=== PATIENT | female | born 1975 | race Caucasian/White ===

== ENCOUNTER 2016-04-15 12:46 | Day surgery (SDC) | payer BC ==
[2016-04-15 13:36] LABS: MCHC 30.8 g/dl (32.0-36.0); MEAN CELL VOLUME 64.6 fl (80-96); MEAN PLT VOLUME 8.8 fl (7.5-11.1); RDW 18.2 % (11.6-15.6); WHITE BLOOD COUNT 10.3 K/mm3 (4.0-10.0)
[2016-04-15 13:38] LABS: MCH 19.9 pg (25.7-33.7)
[2016-04-15] MEDS ORDERED: REFRIGERATED ANITBIOTICS ONE (13:44)
[2016-04-15] MEDS ORDERED: IRON SUCROSE INJECTION 200 MG in SODIUM CHLORIDE 100 ML IVPB ONE (14:00)
[2016-04-15 14:01] VITALS: TEMP 98; BMI 31.8
[2016-04-15 14:20] LABS: PLATELET COUNT 248 K/MM3 (134-434)
[2016-04-15 14:21] LABS: ANISOCYTOSIS 1+; HYPOCHROMIA 2+; MICROCYTOSIS 1+; PLATELET COMMENT2 NO CLOTTING DETECTED; PLATELET ESTIMATE ADEQUATE (NORMAL); POLYCHROMASIA OCC
[2016-04-15 14:22] LABS: BURR CELLS 1+; OVALOCYTES 1+; TARGET CELLS 1+
[2016-04-15 15:13] VITALS: BP 126/80; PULSE 69
== END 2016-04-15 15:23 | disposition home or self-care (01) ==
LOC: FINFUSION 12:46 → FLAB 12:46 → FM/S 12:52 → FLAB 15:23 → FM/S 15:23
PROVIDERS: ATTEND Internal Medicine Hematology & Oncology
PROC: 3E033GC Introduction of Other Therapeutic Substance into Peripheral Vein, Percutaneous Approach (ICD-10-PCS; principal; 2016-04-15)
DX: D64.9 Anemia, unspecified (principal)
CPT/HCPCS: 36415; 84591; 85025; 96365; J1756

== ENCOUNTER 2016-04-22 12:35 | Day surgery (SDC) | payer BC ==
[~2016-04-22 12:35] MED LIST: IRON SUCROSE INJECTION 200 MG in SODIUM CHLORIDE 100 ML IVPB ONE
[2016-04-22 13:51] VITALS: BP 124/72; PULSE 68
== END 2016-04-22 13:52 | disposition home or self-care (01) ==
LOC: FINFUSION 12:35 → FM/S 12:37 → FINFUSION 13:52
PROVIDERS: ATTEND Internal Medicine Hematology & Oncology
PROC: 3E033GC Introduction of Other Therapeutic Substance into Peripheral Vein, Percutaneous Approach (ICD-10-PCS; principal; 2016-04-22)
DX: D50.9 Iron deficiency anemia, unspecified (principal)
CPT/HCPCS: 96365

== ENCOUNTER 2016-04-29 13:33 | Day surgery (SDC) | payer BC ==
[2016-04-29] MEDS ORDERED: REFRIGERATED ANITBIOTICS ONE (14:01)
[2016-04-29] MEDS ORDERED: IRON SUCROSE INJECTION 200 MG in SODIUM CHLORIDE 100 ML IVPB ONE (14:15)
[2016-04-29 17:45] VITALS: TEMP 98.4; BMI 30.4
[2016-04-29 17:48] VITALS: BP 110/72; PULSE 76
== END 2016-04-29 15:00 | disposition home or self-care (01) ==
LOC: FINFUSION 13:33 → FM/S 13:36 → FINFUSION 15:00
PROVIDERS: ATTEND Internal Medicine Hematology & Oncology
PROC: 3E033GC Introduction of Other Therapeutic Substance into Peripheral Vein, Percutaneous Approach (ICD-10-PCS; principal; 2016-04-29)
DX: D50.9 Iron deficiency anemia, unspecified (principal)
CPT/HCPCS: 96365; 96366; J1756

== ENCOUNTER 2016-05-06 10:49 | Day surgery (SDC) | payer BC ==
[2016-05-06] MEDS ORDERED: REFRIGERATED ANITBIOTICS ONE (11:25)
[2016-05-06] MEDS ORDERED: IRON SUCROSE INJECTION 200 MG in SODIUM CHLORIDE 100 ML IVPB ONE (12:45)
[2016-05-06 12:53] VITALS: BP 114/68; PULSE 90; TEMP 98
== END 2016-05-06 12:54 | disposition home or self-care (01) ==
LOC: FINFUSION 10:49 → FM/S 10:50 → FINFUSION 12:54
PROVIDERS: ATTEND Internal Medicine Hematology & Oncology
PROC: 3E033GC Introduction of Other Therapeutic Substance into Peripheral Vein, Percutaneous Approach (ICD-10-PCS; principal; 2016-05-06)
DX: D50.9 Iron deficiency anemia, unspecified (principal)
CPT/HCPCS: 96365; J1756

== ENCOUNTER 2016-05-13 13:14 | Day surgery (SDC) | payer BC ==
[2016-05-13 13:49] VITALS: BP 110/65; PULSE 62; TEMP 97.6; BMI 30.4
[2016-05-13] MEDS ORDERED: IRON SUCROSE COMPLEX 100 MG/5 ML VIAL IVPB ONE (14:00)
[2016-05-13] MEDS ORDERED: REFRIGERATED ANITBIOTICS ONE (14:20)
== END 2016-05-13 15:45 | disposition home or self-care (01) ==
LOC: FINFUSION 13:14 → FM/S 13:15 → FINFUSION 15:45
PROVIDERS: ATTEND Internal Medicine Hematology & Oncology
PROC: 3E033GC Introduction of Other Therapeutic Substance into Peripheral Vein, Percutaneous Approach (ICD-10-PCS; principal; 2016-05-13)
DX: D50.9 Iron deficiency anemia, unspecified (principal)
CPT/HCPCS: 96365; J1756

== ENCOUNTER 2016-05-20 12:44 | Day surgery (SDC) | payer BC ==
[2016-05-20] MEDS ORDERED: IRON SUCROSE INJECTION 100 MG in SODIUM CHLORIDE 95 ML IVPB ONE (13:00)
[2016-05-20] MEDS ORDERED: IRON SUCROSE INJECTION 200 MG in SODIUM CHLORIDE 240 ML IVPB ONE (13:00)
[2016-05-20 14:11] VITALS: BP 105/65; PULSE 61
== END 2016-05-20 14:20 | disposition home or self-care (01) ==
LOC: FINFUSION 12:44 → FM/S 12:45 → FINFUSION 14:20
PROVIDERS: ATTEND Internal Medicine Hematology & Oncology
PROC: 3E033GC Introduction of Other Therapeutic Substance into Peripheral Vein, Percutaneous Approach (ICD-10-PCS; principal; 2016-05-20)
DX: D50.9 Iron deficiency anemia, unspecified (principal)
CPT/HCPCS: 96365; J1756

== ENCOUNTER 2018-02-02 17:46 | Day surgery (SDC) | payer BC ==
[2018-02-02] MEDS ORDERED: IRON SUCROSE INJECTION 200 MG in SODIUM CHLORIDE 100 ML IVPB ONE (18:30)
[2018-02-02 18:34] VITALS: BMI 31.8
[2018-02-02 19:32] VITALS: BP 125/76
[2018-02-02 19:33] VITALS: PULSE 72; TEMP 98.6
== END 2018-02-02 19:42 | disposition home or self-care (01) ==
LOC: FINFUSION 17:46 → FM/S 17:47 → FINFUSION 19:42
PROVIDERS: ATTEND Internal Medicine Hematology & Oncology
PROC: 3E033GC Introduction of Other Therapeutic Substance into Peripheral Vein, Percutaneous Approach (ICD-10-PCS; principal; 2018-02-02)
DX: D50.8 Other iron deficiency anemias (principal)
CPT/HCPCS: 96365; J1756

== ENCOUNTER 2018-02-09 14:25 | Day surgery (SDC) | payer BC ==
[2018-02-09] MEDS ORDERED: IRON SUCROSE COMPLEX 100 MG/5 ML VIAL ONE (15:04)
[2018-02-09] MEDS ORDERED: IRON SUCROSE INJECTION 200 MG in SODIUM CHLORIDE 100 ML IVPB ONE (15:15)
[2018-02-09 15:29] VITALS: BMI 31.8
[2018-02-09 16:51] VITALS: BP 118/82; PULSE 71
[2018-02-09 16:52] VITALS: TEMP 98.3
== END 2018-02-09 16:56 | disposition home or self-care (01) ==
LOC: FINFUSION 14:25 → FM/S 14:27 → FINFUSION 16:56
PROVIDERS: ATTEND Internal Medicine Hematology & Oncology
PROC: 3E033GC Introduction of Other Therapeutic Substance into Peripheral Vein, Percutaneous Approach (ICD-10-PCS; principal; 2018-02-09)
DX: D50.8 Other iron deficiency anemias (principal)
CPT/HCPCS: 96365; J1756

== ENCOUNTER 2018-02-16 14:01 | Day surgery (SDC) | payer BC ==
[2018-02-16] MEDS ORDERED: IRON SUCROSE INJECTION 200 MG in SODIUM CHLORIDE 90 ML IVPB ONE (14:21)
[2018-02-16 14:25] VITALS: TEMP 98.4
[2018-02-16 14:26] VITALS: BMI 31.6
[2018-02-16 15:38] VITALS: BP 110/70; PULSE 63
== END 2018-02-16 15:43 | disposition home or self-care (01) ==
LOC: FINFUSION 14:01 → FM/S 14:09 → FINFUSION 15:43
PROVIDERS: ATTEND Internal Medicine Hematology & Oncology
PROC: 3E033GC Introduction of Other Therapeutic Substance into Peripheral Vein, Percutaneous Approach (ICD-10-PCS; principal; 2018-02-16)
DX: D50.8 Other iron deficiency anemias (principal)
CPT/HCPCS: 96365; J1756

== ENCOUNTER → 2018-02-23 | Day surgery (SDC) | payer BC ==
[2018-02-23 15:31] VITALS: BP 132/70; PULSE 78
[2018-02-23 16:22] VITALS: TEMP 98.1
[2018-02-23 18:16] VITALS: BMI 31.8
== END | disposition home or self-care (01) ==
LOC: FINFUSION 14:33
PROVIDERS: ATTEND Internal Medicine Hematology & Oncology
PROC: 3E033GC Introduction of Other Therapeutic Substance into Peripheral Vein, Percutaneous Approach (ICD-10-PCS; principal; 2018-02-23)
DX: D50.9 Iron deficiency anemia, unspecified (principal)
CPT/HCPCS: 96365; J1756

== ENCOUNTER 2018-03-02 12:25 | Day surgery (SDC) | payer BC ==
[2018-03-02 12:45] VITALS: BP 110/68; PULSE 72; TEMP 98.1
[2018-03-02 12:50] VITALS: BMI 31.8
[2018-03-02] MEDS ORDERED: IRON SUCROSE INJECTION 200 MG in SODIUM CHLORIDE 100 ML IVPB ONE (13:00)
== END 2018-03-02 13:45 | disposition home or self-care (01) ==
LOC: FM/S 12:25 → FINFUSION 12:25
PROVIDERS: ATTEND Internal Medicine Hematology & Oncology
PROC: 3E033GC Introduction of Other Therapeutic Substance into Peripheral Vein, Percutaneous Approach (ICD-10-PCS; principal; 2018-03-02)
DX: D50.9 Iron deficiency anemia, unspecified (principal)
CPT/HCPCS: 96365; J1756

== ENCOUNTER 2018-03-10 18:35 | Day surgery (SDC) | payer BC ==
[2018-03-10 18:53] VITALS: PULSE 88; TEMP 98.7
[2018-03-10 20:55] VITALS: BP 100/69
== END 2018-03-10 20:45 | disposition home or self-care (01) ==
LOC: FINFUSION 18:35 → FM/S 18:37 → FINFUSION 20:45
PROVIDERS: ATTEND Internal Medicine Hematology & Oncology
DX: D50.9 Iron deficiency anemia, unspecified (principal)
CPT/HCPCS: 96365; J1756

== ENCOUNTER 2018-06-06 17:35 | Day surgery (SDC) | payer BC ==
[2018-06-06 19:09] VITALS: BP 110/60; PULSE 72; TEMP 97.8
[2018-06-06] MEDS ORDERED: IRON SUCROSE INJECTION 200 MG in SODIUM CHLORIDE 100 ML IVPB ONE (19:15)
== END 2018-06-06 19:04 | disposition home or self-care (01) ==
LOC: FINFUSION 17:35 → FM/S 17:49 → FINFUSION 19:04
PROVIDERS: ATTEND Internal Medicine Hematology & Oncology
PROC: 3E033GC Introduction of Other Therapeutic Substance into Peripheral Vein, Percutaneous Approach (ICD-10-PCS; principal; 2018-06-06)
DX: D50.9 Iron deficiency anemia, unspecified (principal)
CPT/HCPCS: 96365; J1756